=== PATIENT | male | born 1985 | race Caucasian/White ===

== ENCOUNTER 2020-05-12 20:35 | Emergency (ER) | payer OTHER ==
[2020-05-12 20:40] VITALS: RESP 18; TEMP 98.1
--- NOTE | 2020-05-12 21:05 | XR ---
EXAMINATION TYPE: XR knee 4V LT DATE OF EXAM: 05/12/2020 COMPARISON: NONE HISTORY: Knee pain TECHNIQUE: 4 views FINDINGS: I see no fracture nor dislocation. Joint spaces are normal. There is no sign of joint effus ion. There is bipartite patella which is normal variant. IMPRESSION: Normal left knee.
[2020-05-12] MEDS ORDERED: HYDROcodone/APAP 5-325MG 1 EACH TAB PO STA (21:20)
[2020-05-12] MEDS ORDERED: HYDROmorphone 1 MG/ML 1 ML SYRINGE IM STA (22:06)
[2020-05-12] MEDS ORDERED: KETOROLAC 15 MG/ML 1 ML VIAL IM STA (22:06)
--- NOTE | 2020-05-12 22:27 | ED ---
Lower Extremity Injury HPI - General Chief Complaint: Extremity Injury, Lower Stated Complaint: L Knee Pain Time Seen by Provider: 05/12/20 20:45 Source: patient Mode of arrival: wheelchair Limitations: no limitations - History of Present Illness Initial Comments: 34-year-old male presenting today for chief complaint of left knee pain. Patient states that he was sitting style when to get up and felt his knee pop. Patient states that he wasn't sure if it came out of place he states he knows it did not go backwards he states he never popped it back in. Patient denies any swelling he states is tender to extend the knee. Patient sates his anterior lateral pain patient denies additional complaints upon arrival patient denies any numbness tingling or loss of sensation denies a fall trauma to the head additional injuries. Pt asked if on any pain medications currently he said no. - Related Data Allergies Allergy/AdvReac Type Severity Reaction Status Date / Time Penicillins AdvReac Swelling Verified 05/12/20 20:40 Review of Systems ROS Statement: Those systems with pertinent positive or pertinent negative responses have been documented in the HPI. ROS Other: All systems not noted in ROS Statement are negative. Past Medical History Past Medical History: Hypertension History of Any Multi-Drug Resistant Organisms: None Reported Past Surgical History: No Surgical Hx Reported Past Psychological History: Anxiety, Depression Smoking Status: Current every day smoker Past Alcohol Use History: None Reported Past Drug Use History: Marijuana General Exam - General Exam Comments Initial Comments: General: The patient is awake and alert Eye: Pupils are equal, round and reactive to light, extra-ocular movements are intact. No nystagmus. There is normal conjunctiva bilaterally. No signs of icterus. Ears, nose, mouth and throat: There are moist mucous membranes and no oral lesions. Neck: The neck is supple, there is no tenderness or JVD. Cardiovascular: There is a regular rate and rhythm. No murmur, rub or gallop is appreciated. Respiratory: Lungs are clear to auscultation, respirations are non-labored, breath sounds are equal. No wheezes, stridor, rales, or rhonchi. Musculoskeletal: No knee swelling/redness/deformity. States very painful with extension, pain anterior lateral to palpation, no posterior knee pain. Strength 5/5 of the LE b/l. Sensation intact of the LE b/l. Pulses equal bilaterally 2+. Initially refused to extend knee, but once we discussed maps report patient straightened knee no difficulty. Neurological: A&O x 3. CN II-XII intact grossly, There are no obvious motor or sensory deficits. Coordination appears grossly intact. Speech is normal. Skin: Skin is warm and dry and no rashes or lesions are noted. Psychiatric: Cooperative, appropriate mood & affect, normal judgment. Limitations: no limitations Course Vital Signs 05/12/20 20:37 Temperature 98.1 F Pulse Rate 81 Respiratory 18 Rate Blood Pressure 137/88 O2 Sat by Pulse 97 Oximetry Medical Decision Making - Medical Decision Making neurovascularly intact.XR (-). pt has very drug seeking behaviors. initally denied adamently no pain medications taken at home. pt pain/hx doesnt appear consistent. Attending evaluated patient prior to [facility] report. Pain medications were given in order to obtain better exam. Pt PCP is in [place], he is on suboxone and did not disclose this to staff prior to medications administration. Discussion later with the triage nurse she states he did ask initially "will i be medicated properly at this facility". pt exhibits drug seeking behaviors. Moving knee fulling including full extnsion prior to discharge. recommend immobilizer while ambulating, orthopedic follow-up, ibuprofen and Tylenol. Patient discharged appearing well.l Disposition Clinical Impression: Left knee pain, Anterior knee pain, Drug-seeking behavior Disposition: HOME SELF-CARE Condition: Good Instructions (If sedation given, give patient instructions): Knee Sprain (ED) Additional Instructions: Please use medication as discussed. Please follow-up with family doctor in the next 2 days.. Please return to emergency room if the symptoms increase or worsen or for any other concerns. Is patient prescribed a controlled substance at d/c from ED?: No Referrals: None,Stated [Primary Care Provider] - 1-2 days Efrain Greer MD [STAFF PHYSICIAN] - 1-2 days Time of Disposition: 22:45
[2020-05-12 23:01] VITALS: BP 137/89; PULSE 64
== END 2020-05-12 23:01 | disposition home or self-care (01) ==
LOC: EC 20:35
DX: M25.562 Pain in left knee (principal); F17.200 Nicotine dependence, unspecified, uncomplicated; Z88.0 Allergy status to penicillin; Z76.5 Malingerer [conscious simulation]; X50.1XXA Overexertion from prolonged static or awkward postures, initial encounter
CPT/HCPCS: 73564; 99283; 96372 ×2; J1170; J1885